=== PATIENT | male | born 1980 | race Caucasian/White ===

== ENCOUNTER 2018-03-15 10:49 | Emergency (ER) | payer OTHER ==
[2018-03-15] MEDS: LIDOCAINE 2% MDV 20 ML VIAL SC (11:10)
[2018-03-15] MEDS: ONDANSETRON 4MG/2ML VIAL (J2405) IV (11:14)
[2018-03-15] MEDS: MORPHINE 4 MG/ML 1ML VIAL/SYRINGE (J2270) IV (11:15)
== END 2018-03-15 13:06 | disposition home or self-care (01) ==
LOC: M ED 10:49
DX: S62.631B Displaced fracture of distal phalanx of left index finger, initial encounter for open fracture (principal); S62.633B Displaced fracture of distal phalanx of left middle finger, initial encounter for open fracture; S61.241A Puncture wound with foreign body of left index finger without damage to nail, initial encounter; S61.243A Puncture wound with foreign body of left middle finger without damage to nail, initial encounter; S61.235A Puncture wound without foreign body of left ring finger without damage to nail, initial encounter; W45.0XXA Nail entering through skin, initial encounter; Y92.9 Unspecified place or not applicable; Y93.9 Activity, unspecified; Y99.0 Civilian activity done for income or pay; Z72.0 Tobacco use
CPT/HCPCS: J2270